=== PATIENT | male | born 1985 | race American Indian/Alaskan Native ===

== ENCOUNTER 2018-07-17 18:25 | Inpatient (IN) | payer SELFPAY ==
[~2018-07-17 18:25] MED LIST: VITAMIN B-1 PO ONE
[2018-07-17] MEDS ORDERED: ATIVAN IV ONE (18:50)
--- NOTE | 2018-07-17 19:00 | Emergency Department Report ---
HPI - General Chief Complaint: Seizure Time Seen by Provider: 07/17/18 18:43 - HPI HPI: Room 8 The patient is a 33-year-old male presenting with chief complaint of seizure. The patient states he normally drinks two 24 ounce beers or sixpack daily. The patient states he recently cut down on his alcohol and only drank one beer yesterday. Patient states he did not drink any beer today. Yesterday the patient states he had a seizure and today he had a second seizure awakening on the floor. Location: [facility] Duration: [See above] Quality: Generalized tonic-clonic Severity: [See above] Modifying factors: [see above] Context: [see above] Mode of transportation: [not driving] ED Past Medical Hx - Past Medical History Hx Seizures: Yes - Surgical History Past Surgical History?: No - Family History Family history: no significant - Social History Smoking Status: Current Every Day Smoker (1/2 pack per day) Substance Use Type: Alcohol (sixpack of beer daily) ED Review of Systems ROS: Stated complaint: SEIZURE Other details as noted in HPI Constitutional: no symptoms reported Eyes: denies: eye pain ENT: denies: throat pain Respiratory: no symptoms reported Cardiovascular: denies: chest pain Endocrine: no symptoms reported Gastrointestinal: denies: abdominal pain Genitourinary: denies: dysuria Musculoskeletal: denies: back pain Neurological: other (seizure) Physical Exam - Physical Exam Physical Exam: GENERAL: The patient is well-developed well-nourished male lying on stretcher appearing slightly tremulous. [] HEENT: Normocephalic. Atraumatic. Extraocular motions are intact. Patient has moist mucous membranes. NECK: Supple. Trachea midline CHEST/LUNGS: Clear to auscultation. There is no respiratory distress noted. HEART/CARDIOVASCULAR: Regular. There is no tachycardia. There is no gallop rub or murmur. ABDOMEN: Abdomen is soft, nontender. Patient has normal bowel sounds. There is no abdominal distention. SKIN: There is no rash. There is no edema. There is no diaphoresis. NEURO: The patient is awake, alert, and oriented. The patient is cooperative. The patient has no focal neurologic deficits. The patient has normal speech. Mild tremulousness MUSCULOSKELETAL: There is no evidence of acute injury. ED Medical Decision Making - Lab Data Result diagrams: 07/17/18 19:03 07/17/18 19:03 Laboratory Tests 07/17/18 07/17/18 19:03 19:03 WBC 4.7 RBC 4.18 Hgb 13.8 Hct 39.6 MCV 95 H MCH 33 H MCHC 35 H RDW 13.8 Plt Count 104 L Lymph % (Auto) 6.1 L [place] % (Auto) 11.9 H Eos % (Auto) 0.7 Baso % (Auto) 1.3 Lymph # 0.3 L [place] # 0.6 Eos # 0.0 Baso # 0.1 Seg Neutrophils % 80.0 H Seg Neutrophils # 3.8 Sodium 132 L Potassium 3.9 Chloride 95.2 L Carbon Dioxide 25 Anion Gap 16 BUN 11 Creatinine 1.1 Estimated GFR > 60 BUN/Creatinine Ratio 10 Glucose 102 H Calcium 9.5 Magnesium 1.90 Total Bilirubin 1.10 AST 247 H ALT 134 H Alkaline Phosphatase 124 Total Protein 7.0 Albumin 4.3 Albumin/Globulin Ratio 1.6 - Differential Diagnosis alcohol withdrawal Critical care attestation.: If time is entered above; I have spent that time in minutes in the direct care of this critically ill patient, excluding procedure time. ED Disposition Clinical Impression: Alcohol withdrawal Disposition: DC-09 OP ADMIT IP TO THIS HOSP Is pt being admited?: Yes Does the pt Need Aspirin: No Condition: Fair Time of Disposition: 19:37 (Hospitalist paged )
[2018-07-17] MEDS ORDERED: ATIVAN IV PRN (19:10)
[2018-07-17 19:14] LABS: Basophils # (Auto) 0.1 K/mm3 (0.0-0.1); Basophils % (Auto) 1.3 % (0.0-1.8); Eosinophils % (Auto) 0.7 % (0.0-4.3); Hematocrit 39.6 % (35.5-45.6); Hemoglobin 13.8 gm/dl (11.8-15.2); Lymphocytes # (Auto) 0.3 K/mm3 (1.2-5.4); Lymphocytes % (Auto) 6.1 % (13.4-35.0); Mean Corpuscular HGB Conc 35 % (32-34); Mean Corpuscular Volume 95 fl (84-94); Monocytes # (Auto) 0.6 K/mm3 (0.0-0.8); Monocytes % (Auto) 11.9 % (0.0-7.3); Platelet Count 104 K/mm3 (140-440); Red Blood Count 4.18 M/mm3 (3.65-5.03); Red Cell Distribution Width 13.8 % (13.2-15.2)
[2018-07-17 19:29] LABS: Alanine Aminotransferase 134 units/L (7-56); Albumin 4.3 g/dL (3.9-5); BUN/Creatinine Ratio 10; Blood Urea Nitrogen 11 mg/dL (9-20); Calcium 9.5 mg/dL (8.4-10.2); Hemolysis Index 38
[2018-07-17] MEDS ORDERED: VITAMIN B-1 PO SCH (19:30)
[2018-07-17] MEDS ORDERED: VITAMIN B-1 PO ONE (19:30)
[2018-07-17] MEDS ORDERED: ZOFRAN IV PRN (19:40)
[2018-07-17] MEDS ORDERED: SODIUM CHLORIDE FLUSH SYRINGE 10 ML IV PRN (19:40)
[2018-07-17] MEDS ORDERED: TYLENOL PO PRN (19:40)
[2018-07-17] MEDS ORDERED: PROVENTIL IH PRN ×2 (19:40→19:50)
--- NOTE | 2018-07-17 19:43 | History and Physical Report ---
History of Present Illness Chief complaint: I need help History of present illness: 33 YO Male with Nicotine Dependence, ETOH Dependence presents to ED for evaluation. Pt states that he has been trying to stop drinking ETOH over the past 1 week, and cut down his ETOG intake over the past 1 week, and only drank 1 beer yesterday. Pt was found down on the floor by family members having a seizure witnessed by the family. EMS notified and upon arrival the patient was found to be confused, with altered mentation. Pt transported to [facility]. Pt seen and evaluated in ED and found to have ETOH Withdrawl complicated by Seizures, Encephalopathy. Pt is lethargic, tremulous and unable to provide detailed history. No further history obtainable. Pt admitted to Medical floor and initiated on CIWA protocol, and banana bag. Past History Past Medical History: seizures Past Surgical History: No surgical history, Other (reviewed) Social history: single, alcohol abuse Family history: no significant family history (reviewed) Medications and Allergies Allergies Allergy/AdvReac Type Severity Reaction Status Date / Time No Known Allergies Allergy Unverified 07/17/18 18:55 Active Meds: Active Medications Acetaminophen (Tylenol) 650 mg PO Q4H PRN PRN Reason: Pain MILD(1-3)/Fever >100.5/WARD Albuterol (Proventil) 2.5 mg IH Q4HRT PRN PRN Reason: Shortness Of Breath Folic Acid 1 mg/ Multivitamins /Minerals 10 ml/ Magnesium Sulfate 2 gm/ Sodium Chloride 1,014.2 mls @ 250 mls/hr IV ONCE ONE Stop: 07/18/18 00:03 Thiamine HCl 100 mg/ Folic Acid 1 mg/ Multivitamins/Minerals 10 ml/ Sodium Chloride 1,011.2 mls @ 250 mls/hr IV ONCE ONE Stop: 07/17/18 23:43 Lorazepam (Ativan) 2 mg IV Q1HR PRN PRN Reason: CIWA-Ar 8-15 Lorazepam (Ativan) 4 mg IV Q1HR PRN PRN Reason: CIWA-Ar 16-25 Lorazepam (Ativan) 4 mg IV Q15MIN PRN PRN Reason: CIWA-Ar >25 Ondansetron HCl (Zofran) 4 mg IV Q8H PRN PRN Reason: Nausea And Vomiting Sodium Chloride (Sodium Chloride Flush Syringe 10 Ml) 10 ml IV BID ALEKSANDR Sodium Chloride (Sodium Chloride Flush Syringe 10 Ml) 10 ml IV PRN PRN PRN Reason: LINE FLUSH Review of Systems ROS unobtainable: due to mental status Exam - Constitutional Vitals: Temp Pulse Resp BP Pulse Ox 98.5 F 97 H 20 137/88 98 07/17/18 18:57 07/17/18 18:57 07/17/18 18:57 07/17/18 18:57 07/17/18 18:57 General appearance: Present: mild distress, cachectic, disheveled, malodorous - EENT Eyes: Present: PERRL, miosis ENT: hearing intact, clear oral mucosa - Neck Neck: Present: supple, normal ROM - Respiratory Respiratory effort: normal Respiratory: bilateral: CTA - Cardiovascular Rhythm: other (tachycardia) Heart Sounds: Present: S1 & S2. Absent: rub, click - Extremities Extremities: pulses symmetrical, No edema Peripheral Pulses: within normal limits - Abdominal General gastrointestinal: Present: soft, non-tender, non-distended, normal bowel sounds Male genitourinary: Present: normal - Integumentary Integumentary: Present: warm, clammy, decreased turgor - Musculoskeletal Musculoskeletal: generalized weakness - Psychiatric Psychiatric: no appropriate mood/affect, no intact judgment & insight, no memory intact, agitated - Neurologic Neurologic: moves all extremities, no gait normal Results - Labs CBC & Chem 7: 07/17/18 19:03 07/17/18 19:03 Labs: Abnormal lab results 07/17/18 07/17/18 Range/Units 19:03 19:03 MCV 95 H (84-94) fl MCH 33 H (28-32) pg MCHC 35 H (32-34) % Plt Count 104 L (140-440) K/mm3 Lymph % (Auto) 6.1 L (13.4-35.0) % [place] % (Auto) 11.9 H (0.0-7.3) % Lymph # 0.3 L (1.2-5.4) K/mm3 Seg Neutrophils % 80.0 H (40.0-70.0) % Sodium 132 L (137-145) mmol/L Chloride 95.2 L (98-107) mmol/L Glucose 102 H (75-100) mg/dL AST 247 H (5-40) units/L ALT 134 H (7-56) units/L Assessment and Plan - Patient Problems (1) Alcohol withdrawal Current Visit: Yes Status: Acute Qualifiers: Complication of substance-induced condition: with delirium Qualified Code(s): F10.231 - Alcohol dependence with withdrawal delirium Plan to address problem: Admit to medical floor, with remote telemetry, CIWA protocol, banana bag, neuro checks, seizure precautions, aspiration precautions, fall precautions, Alcolol level. (2) Hyponatremia syndrome Current Visit: Yes Status: Acute Plan to address problem: IVF resuscitation therapy,repeat bmp in am to monitor serum sodium (3) Nicotine dependence Current Visit: Yes Status: Acute Qualifiers: Nicotine product type: cigarettes Plan to address problem: Smoking cessation counseling, supportive care. (4) DVT prophylaxis Current Visit: Yes Status: Acute Plan to address problem: SCD to BLE, prophylactic lovenox
[2018-07-17] MEDS ORDERED: FOLVITE 1 MG, INFUVITE 10 ML, MAGNESIUM SULFATE 2 GM in NACL 0.9% 1000 ML 1,000 ML IV ONE (20:00)
[2018-07-17] MEDS ORDERED: FOLVITE 1 MG, INFUVITE 10 ML in NACL 0.9% 1000 ML 1,000 ML IV ONE (21:00)
--- NOTE | 2018-07-17 21:59 | Cat Scan Report ---
PROCEDURE: CT HEAD/BRAIN WO CON TECHNIQUE: Computerized tomography of the head was performed without contrast material. CT DOSE LENGTH PRODUCT: mGycm HISTORY: confusion COMPARISONS: None . FINDINGS: Skull and scalp: Normal . Paranasal sinuses: Normal . Ventricles and subarachnoid spaces: Normal . Cerebrum: No evidence of hemorrhage, acute infarction or mass . Cerebellum and brainstem: No evidence of hemorrhage, acute infarction or mass . Vasculature: Normal . Other: None . ASPECTS: 10 IMPRESSION: Unremarkable study. This document is electronically signed by Garett Dao MD., July 17 2018 09:57:16 PM ET
[2018-07-17] MEDS: LOVENOX SUB-Q SCH (22:24)
[2018-07-17] MEDS: SODIUM CHLORIDE FLUSH SYRINGE 10 ML IV SCH (22:24)
[2018-07-17] MEDS: ATIVAN IV PRN (22:28)
[2018-07-18 06:23] LABS: BUN/Creatinine Ratio 11; Blood Urea Nitrogen 10 mg/dL (9-20); Calcium 8.7 mg/dL (8.4-10.2); Hemolysis Index 5
[2018-07-18] MEDS: ATIVAN IV PRN ×5 (10:24→20:35)
[2018-07-18] MEDS ORDERED: K-DUR PO ONE (10:42)
--- NOTE | 2018-07-18 15:28 | Progress Note ---
Subjective Date of service: 07/18/18 Interval history: reviewed the CT of the head and it is normal the seizures are likely alcohol related from heavy drinking to the extent there is alcohol induced liver enzyme changes see the AST/ ALT agree with managemnt plan would treat with anticonvulsants Objective - Vital Sign Vital Signs - 12hr 07/18/18 07/18/18 11:21 11:45 Temperature 98.1 F Pulse Rate 83 Respiratory 16 Rate Blood Pressure 138/81 O2 Sat by Pulse 99 100 Oximetry - Laboratory Findings CBC and BMP: 07/17/18 19:03 07/18/18 05:45 Abnormal Lab Findings: Abnormal Labs 07/17/18 07/17/18 07/18/18 19:03 19:03 05:45 MCV 95 H MCH 33 H MCHC 35 H Plt Count 104 L Lymph % (Auto) 6.1 L [place] % (Auto) 11.9 H Lymph # 0.3 L Seg Neutrophils % 80.0 H Sodium 132 L 135 L Potassium 3.5 L Chloride 95.2 L Glucose 102 H AST 247 H ALT 134 H
--- NOTE | 2018-07-18 17:00 | Progress Note ---
Assessment and Plan Assessment and plan: 33 YO Male with Nicotine Dependence, ETOH Dependence presents to ED for evaluation. Pt states that he has been trying to stop drinking ETOH over the past 1 week, and cut down his ETOG intake over the past 1 week, and only drank 1 beer yesterday. Pt was found down on the floor by family members having a s eizure witnessed by the family. EMS notified and upon arrival the patient was found to be confused, with altered mentation. Pt transported to [facility]. Pt seen and evaluated in ED and found to have ETOH Withdrawl complicated by Seizures, Encephalopathy. Pt is lethargic, tremulous and unable to provide detailed history. No further history obtainable. Pt admitted to Medical floor and initiated on CIWA protocol, and banana bag. CT of the head and it is normal - Patient Problems (1) Alcohol withdrawal Current Visit: Yes Status: Acute Qualifiers: Complication of substance-induced condition: with delirium Qualified Code(s): F10.231 - Alcohol dependence with withdrawal delirium Plan to address problem: Continue current care, CIWA protocol, banana bag, neuro checks, seizure precautions, aspiration precautions, fall precautions, Alcolol level. D/C remote tele Monitor and replace electrolytes Neurology recommending anticonvulsants but not sure which one. (2) Seizure Neurology consult. Patient with repeated seizures. Most likely secondary to ETOH (3) Hyponatremia syndrome Current Visit: Yes Status: Acute Plan to address problem: stable, IVF resuscitation therapy, repeat bmp in am to monitor serum sodium (4) Nicotine dependence Current Visit: Yes Status: Acute Qualifiers: Nicotine product type: cigarettes Plan to address problem: Smoking cessation counseling, supportive care. (5) Metabolic Encephalopathy Secondary to ETOH Continues to get up unassisted and possess a risk to himself. will place on safety restraints until he is following commands fully and steady on gait (6) DVT prophylaxis Current Visit: Yes Status: Acute Plan to address problem: SCD to BLE, prophylactic lovenox History Interval history: Patient seen and examined, still with tremors and still with intermittent confusion. Admitted with seizure related to ETOH Hospitalist Physical - Physical exam Narrative exam: VITAL SIGNS: Reviewed. GENERAL: The patient appeared well nourished and normally developed, Mild distress, Vital signs as documented. HEAD: No signs of head trauma. EYES: Pupils are equal. Extraocular motions intact. EARS: Hearing grossly intact. MOUTH: Oropharynx is normal. NECK: No adenopathy, no JVD. CHEST: Chest with clear breath sounds bilaterally. No wheezes, rales, or rhonchi. CARDIAC: [place] but regular rhythm. S1 and S2, without murmurs, gallops, or rubs. VASCULAR: No Edema. Peripheral pulses normal and equal in all extremities. ABDOMEN: Soft, non tender and non distended. No rebound or guarding, and no masses palpated. Bowel Sounds normal. MUSCULOSKELETAL: Good range of motion of all major joints. Extremities without clubbing, cyanosis or edema. NEUROLOGIC EXAM: Tremor, Alert and oriented x 2 No focal sensory or strength deficits. unsteady gait Follows commands. PSYCHIATRIC: Mood normal. SKIN: No rash or lesions. - Constitutional Vitals: Temp Pulse Resp BP Pulse Ox 98.1 F 83 16 138/81 100 07/18/18 11:45 07/18/18 11:45 07/18/18 11:45 07/18/18 11:45 07/18/18 11:45 General appearance: Present: mild distress, cachectic, disheveled, malodorous Results - Labs CBC & Chem 7: 07/17/18 19:03 07/18/18 05:45 Labs: Laboratory Last Values WBC 4.7 K/mm3 (4.5-11.0) 07/17/18 19:03 RBC 4.18 M/mm3 (3.65-5.03) 07/17/18 19:03 Hgb 13.8 gm/dl (11.8-15.2) 07/17/18 19:03 Hct 39.6 % (35.5-45.6) 07/17/18 19:03 MCV 95 fl (84-94) H 07/17/18 19:03 MCH 33 pg (28-32) H 07/17/18 19:03 MCHC 35 % (32-34) H 07/17/18 19:03 RDW 13.8 % (13.2-15.2) 07/17/18 19:03 Plt Count 104 K/mm3 (140-440) L 07/17/18 19:03 Lymph % (Auto) 6.1 % (13.4-35.0) L 07/17/18 19:03 [place] % (Auto) 11.9 % (0.0-7.3) H 07/17/18 19:03 Eos % (Auto) 0.7 % (0.0-4.3) 07/17/18 19:03 Baso % (Auto) 1.3 % (0.0-1.8) 07/17/18 19:03 Lymph # 0.3 K/mm3 (1.2-5.4) L 07/17/18 19:03 [place] # 0.6 K/mm3 (0.0-0.8) 07/17/18 19:03 Eos # 0.0 K/mm3 (0.0-0.4) 07/17/18 19:03 Baso # 0.1 K/mm3 (0.0-0.1) 07/17/18 19:03 Seg Neutrophils % 80.0 % (40.0-70.0) H 07/17/18 19:03 Seg Neutrophils # 3.8 K/mm3 (1.8-7.7) 07/17/18 19:03 Sodium 135 mmol/L (137-145) L 07/18/18 05:45 Potassium 3.5 mmol/L (3.6-5.0) L 07/18/18 05:45 Chloride 99.0 mmol/L (98-107) 07/18/18 05:45 Carbon Dioxide 26 mmol/L (22-30) 07/18/18 05:45 Anion Gap 14 mmol/L 07/18/18 05:45 BUN 10 mg/dL (9-20) 07/18/18 05:45 Creatinine 0.9 mg/dL (0.8-1.5) 07/18/18 05:45 Estimated GFR > 60 ml/min 07/18/18 05:45 BUN/Creatinine Ratio 11 % 07/18/18 05:45 Glucose 81 mg/dL (75-100) 07/18/18 05:45 Calcium 8.7 mg/dL (8.4-10.2) 07/18/18 05:45 Magnesium 1.90 mg/dL (1.7-2.3) 07/17/18 19:03 Total Bilirubin 1.10 mg/dL (0.1-1.2) 07/17/18 19:03 AST 247 units/L (5-40) H 07/17/18 19:03 ALT 134 units/L (7-56) H 07/17/18 19:03 Alkaline Phosphatase 124 units/L (35-129) 07/17/18 19:03 Total Protein 7.0 g/dL (6.3-8.2) 07/17/18 19:03 Albumin 4.3 g/dL (3.9-5) 07/17/18 19:03 Albumin/Globulin Ratio 1.6 % 07/17/18 19:03 Plasma/Serum Alcohol < 0.01 % (0-0.07) 07/17/18 19:51 Active Medications - Current Medications Current Medications: Generic Name Dose Route Start Last Admin Trade Name Freq PRN Reason Stop Dose Admin Acetaminophen 650 mg 07/17/18 19:40 Tylenol PO Q4H PRN Pain MILD(1-3)/Fever >100.5/WARD Albuterol 2.5 mg 07/17/18 19:50 Proventil IH Q4HRT PRN Shortness Of Breath Enoxaparin Sodium 40 mg 07/17/18 22:00 07/17/18 22:24 Lovenox SUB-Q 40 mg QDAY@2200 ALEKSANDR Administration Lorazepam 2 mg 07/17/18 19:10 07/18/18 16:14 Ativan IV 2 mg Q1HR PRN Administration CIWA-Ar 8-15 Lorazepam 4 mg 07/17/18 19:10 Ativan IV Q1HR PRN CIWA-Ar 16-25 Lorazepam 4 mg 07/17/18 19:10 Ativan IV Q15MIN PRN CIWA-Ar >25 Ondansetron HCl 4 mg 07/17/18 19:40 Zofran IV Q8H PRN Nausea And Vomiting Sodium Chloride 10 ml 07/17/18 22:00 07/17/18 22:24 Sodium Chloride Flush Syringe 10 Ml IV 10 ml BID ALEKSANDR Administration Sodium Chloride 10 ml 07/17/18 19:40 Sodium Chloride Flush Syringe 10 Ml IV PRN PRN LINE FLUSH
[2018-07-18] MEDS ORDERED: GEODON IM ONE (21:00)
[2018-07-18] MEDS ORDERED: WATER FOR INJ Sterile (PF) 10 ML ONE (21:08)
[2018-07-18] MEDS: SODIUM CHLORIDE FLUSH SYRINGE 10 ML IV SCH (21:10)
[2018-07-18] MEDS: LOVENOX SUB-Q SCH (21:20)
[2018-07-19] MEDS: ATIVAN IV PRN ×3 (02:39→06:47)
[2018-07-19 05:53] LABS: Hemoglobin 13.1 gm/dl (11.8-15.2); Mean Corpuscular HGB Conc 35 % (32-34); Mean Corpuscular Volume 96 fl (84-94); Platelet Count 110 K/mm3 (140-440); Red Blood Count 3.95 M/mm3 (3.65-5.03); Red Cell Distribution Width 13.5 % (13.2-15.2)
[2018-07-19 06:02] LABS: Alanine Aminotransferase 163 units/L (7-56); Albumin 4.4 g/dL (3.9-5); BUN/Creatinine Ratio 8; Blood Urea Nitrogen 5 mg/dL (9-20); Calcium 9.1 mg/dL (8.4-10.2); Hemolysis Index 11
[2018-07-19] MEDS: SODIUM CHLORIDE FLUSH SYRINGE 10 ML IV SCH ×3 (08:08→22:50)
--- NOTE | 2018-07-19 08:12 | Progress Note ---
Subjective Date of service: 07/19/18 Interval history: explained the diagnosis to the patient and advise he cease drinking alcohol based on LFT's and seizure disorder... he expressed understanding continue anticonvulsants Objective - Vital Sign Vital Signs - 12hr 07/18/18 07/19/18 22:00 04:45 Temperature 98.3 F Pulse Rate 87 Respiratory 20 Rate Blood Pressure 140/92 O2 Sat by Pulse 99 97 Oximetry - Laboratory Findings CBC and BMP: 07/19/18 04:16 07/19/18 04:16 Abnormal Lab Findings: Abnormal Labs 07/17/18 07/17/18 07/18/18 19:03 19:03 05:45 WBC MCV 95 H MCH 33 H MCHC 35 H Plt Count 104 L Lymph % (Auto) 6.1 L [place] % (Auto) 11.9 H Lymph # 0.3 L Seg Neutrophils % 80.0 H Sodium 132 L 135 L Potassium 3.5 L Chloride 95.2 L Carbon Dioxide BUN Creatinine Glucose 102 H AST 247 H ALT 134 H 07/19/18 07/19/18 04:16 04:16 WBC 4.4 L MCV 96 H MCH 33 H MCHC 35 H Plt Count 110 L Lymph % (Auto) [place] % (Auto) Lymph # Seg Neutrophils % Sodium Potassium Chloride Carbon Dioxide 21 L BUN 5 L Creatinine 0.6 L Glucose AST 377 H ALT 163 H
[2018-07-19] MEDS ORDERED: GEODON IM ONE (11:30)
[2018-07-19] MEDS ORDERED: WATER FOR INJ Sterile (PF) 10 ML ONE (12:39)
--- NOTE | 2018-07-19 14:20 | Progress Note ---
Assessment and Plan Assessment and plan: 33 YO Male with Nicotine Dependence, ETOH Dependence presents to ED for evaluation. Pt states that he has been trying to stop drinking ETOH over the past 1 week, and cut down his ETOG intake over the past 1 week, and only drank 1 beer yesterday. Pt was found down on the floor by family members having a s eizure witnessed by the family. EMS notified and upon arrival the patient was found to be confused, with altered mentation. Pt transported to [facility]. Pt seen and evaluated in ED and found to have ETOH Withdrawl complicated by Seizures, Encephalopathy. Pt is lethargic, tremulous and unable to provide detailed history. No further history obtainable. Pt admitted to Medical floor and initiated on CIWA protocol, and banana bag. CT of the head and it is normal Assessment: Acute metabolic encephalopathy secondary to EtOH withdrawal Alcohol use disorder with active withdrawal and delirium tremens Seizure secondary to EtOH abuse Hyponatremia Nicotine use disorder and dependence Hypokalemia Thrombocytopenia Leukopenia Plan Replace electrolytes as needed Continue supportive care Continue stressful personal safety Continue CIWA protocol Abnormalities on CBC likely secondary to EtOH bone marrow suppression Passive counseling greater than 15 minutes provided to the patient will also repeat once patient is more awake Neurologic input noted Anticonvulsants on discharge DVT and GI prophylaxis History Interval history: Patient seen and examined, still with tremors and still with intermittent confusion and often trying to get out of bed with noted on steady gait. Admitted with seizure related to ETOH Hospitalist Physical - Physical exam Narrative exam: VITAL SIGNS: Reviewed. GENERAL: The patient appeared well nourished and normally developed, Mild di stress, Vital signs as documented. HEAD: No signs of head trauma. EYES: Pupils are equal. Extraocular motions intact. EARS: Hearing grossly intact. MOUTH: Oropharynx is normal. NECK: No adenopathy, no JVD. CHEST: Chest with clear breath sounds bilaterally. No wheezes, rales, or rhonchi. CARDIAC: [place] but regular rhythm. S1 and S2, without murmurs, gallops, or rubs. VASCULAR: No Edema. Peripheral pulses normal and equal in all extremities. ABDOMEN: Soft, non tender and non distended. No rebound or guarding, and no masses palpated. Bowel Sounds normal. MUSCULOSKELETAL: Good range of motion of all major joints. Extremities without clubbing, cyanosis or edema. NEUROLOGIC EXAM: Tremor, Alert and oriented x 1 No focal sensory or strength deficits. unsteady gait Follows commands. PSYCHIATRIC: Mood normal. SKIN: No rash or lesions. on restraints for safty - Constitutional Vitals: Temp Pulse Resp BP Pulse Ox 98.3 F 92 H 22 125/84 100 07/19/18 11:27 07/19/18 11:27 07/19/18 11:27 07/19/18 11:27 07/19/18 13:26 General appearance: Present: mild distress, cachectic, disheveled, malodorous Results - Labs CBC & Chem 7: 07/19/18 04:16 07/19/18 04:16 Labs: Laboratory Last Values WBC 4.4 K/mm3 (4.5-11.0) L 07/19/18 04:16 RBC 3.95 M/mm3 (3.65-5.03) 07/19/18 04:16 Hgb 13.1 gm/dl (11.8-15.2) 07/19/18 04:16 Hct 38.0 % (35.5-45.6) 07/19/18 04:16 MCV 96 fl (84-94) H 07/19/18 04:16 MCH 33 pg (28-32) H 07/19/18 04:16 MCHC 35 % (32-34) H 07/19/18 04:16 RDW 13.5 % (13.2-15.2) 07/19/18 04:16 Plt Count 110 K/mm3 (140-440) L 07/19/18 04:16 Lymph % (Auto) 6.1 % (13.4-35.0) L 07/17/18 19:03 [place] % (Auto) 11.9 % (0.0-7.3) H 07/17/18 19:03 Eos % (Auto) 0.7 % (0.0-4.3) 07/17/18 19:03 Baso % (Auto) 1.3 % (0.0-1.8) 07/17/18 19:03 Lymph # 0.3 K/mm3 (1.2-5.4) L 07/17/18 19:03 [place] # 0.6 K/mm3 (0.0-0.8) 07/17/18 19:03 Eos # 0.0 K/mm3 (0.0-0.4) 07/17/18 19:03 Baso # 0.1 K/mm3 (0.0-0.1) 07/17/18 19:03 Seg Neutrophils % 80.0 % (40.0-70.0) H 07/17/18 19:03 Seg Neutrophils # 3.8 K/mm3 (1.8-7.7) 07/17/18 19:03 Sodium 140 mmol/L (137-145) 07/19/18 04:16 Potassium 3.9 mmol/L (3.6-5.0) 07/19/18 04:16 Chloride 100.7 mmol/L (98-107) 07/19/18 04:16 Carbon Dioxide 21 mmol/L (22-30) L 07/19/18 04:16 Anion Gap 22 mmol/L 07/19/18 04:16 BUN 5 mg/dL (9-20) L 07/19/18 04:16 Creatinine 0.6 mg/dL (0.8-1.5) L 07/19/18 04:16 Estimated GFR > 60 ml/min 07/19/18 04:16 BUN/Creatinine Ratio 8 % 07/19/18 04:16 Glucose 89 mg/dL (75-100) 07/19/18 04:16 Calcium 9.1 mg/dL (8.4-10.2) 07/19/18 04:16 Magnesium 1.90 mg/dL (1.7-2.3) 07/17/18 19:03 Total Bilirubin 1.00 mg/dL (0.1-1.2) 07/19/18 04:16 AST 377 units/L (5-40) H 07/19/18 04:16 ALT 163 units/L (7-56) H 07/19/18 04:16 Alkaline Phosphatase 106 units/L (35-129) 07/19/18 04:16 Total Protein 7.3 g/dL (6.3-8.2) 07/19/18 04:16 Albumin 4.4 g/dL (3.9-5) 07/19/18 04:16 Albumin/Globulin Ratio 1.5 % 07/19/18 04:16 Plasma/Serum Alcohol < 0.01 % (0-0.07) 07/17/18 19:51 Active Medications - Current Medications Current Medications: Generic Name Dose Route Start Last Admin Trade Name Freq PRN Reason Stop Dose Admin Albuterol 2.5 mg 07/17/18 19:50 Proventil IH Q4HRT PRN Shortness Of Breath Enoxaparin Sodium 40 mg 07/17/18 22:00 07/18/18 21:20 Lovenox SUB-Q 40 mg QDAY@2200 ALEKSANDR Administration Sodium Chloride 1,000 mls @ 150 mls/hr 07/19/18 15:00 Nacl 0.9% 1000 Ml IV DIRECT ALEKSANDR Lorazepam 2 mg 07/17/18 19:10 07/19/18 02:39 Ativan IV 2 mg Q1HR PRN Administration CIWA-Ar 8-15 Lorazepam 4 mg 07/17/18 19:10 07/19/18 06:47 Ativan IV 4 mg Q1HR PRN Administration CIWA-Ar 16-25 Lorazepam 4 mg 07/17/18 19:10 Ativan IV Q15MIN PRN CIWA-Ar >25 Ondansetron HCl 4 mg 07/17/18 19:40 Zofran IV Q8H PRN Nausea And Vomiting Sodium Chloride 10 ml 07/17/18 22:00 07/19/18 09:32 Sodium Chloride Flush Syringe 10 Ml IV 10 ml BID ALEKSANDR Administration Sodium Chloride 10 ml 07/17/18 19:40 Sodium Chloride Flush Syringe 10 Ml IV PRN PRN LINE FLUSH
[2018-07-19 15:53] LABS: Alanine Aminotransferase 182 units/L (7-56); Albumin 4.2 g/dL (3.9-5)
[2018-07-19 15:54] LABS: Bilirubin,Direct < 0.2 mg/dL (0-0.2)
[2018-07-19] MEDS: NACL 0.9% 1000 ML 1,000 ML IV SCH ×2 (17:53→22:49)
[2018-07-19] MEDS: LOVENOX SUB-Q SCH (22:50)
[2018-07-20] MEDS: ATIVAN IV PRN (02:37)
[2018-07-20 05:54] VITALS: BP 135/86
[2018-07-20 07:17] LABS: Alanine Aminotransferase 200 units/L (7-56); Albumin 3.9 g/dL (3.9-5); BUN/Creatinine Ratio 12; Blood Urea Nitrogen 7 mg/dL (9-20); Calcium 8.5 mg/dL (8.4-10.2); Hemolysis Index 36
--- NOTE | 2018-07-20 11:19 | Discharge Summary ---
Providers - Providers Date of Admission: 07/17/18 19:40 Attending physician: KRISTEN VIZCARRA MD 07/18/18 10:47 Consult to Physician [CONS] Routine Comment: Consulting Provider: SYDNIE MAY Physician Instructions: Reason For Exam: Recurrent seizures ?etoh related [facility] Reason for admission: seizure Condition: Fair Hospital course: 33 YO Male with Nicotine Dependence, ETOH Dependence presents to ED for evaluation. Pt states that he has been trying to stop drinking ETOH over the past 1 week, and cut down his ETOG intake over the past 1 week, and only drank 1 beer yesterday. Pt was found down on the floor by family members having a seizure witnessed by the family. EMS notified and upon arrival the patient was found to be confused, with altered mentation. Pt transported to [facility]. Pt seen and evaluated in ED and found to have ETOH Withdrawl complicated by Seizures, Encephalopathy. Pt is lethargic, tremulous and unable to provide detailed history. No further history obtainable. Pt admitted to Medical floor and initiated on CIWA protocol, and banana bag. Patient was treated for ETOH withdrawal, electrolyes replaced, mental status improved. He was given extensive counselling about etoh risk and need to quit also encouraged to enroll in AA. he was also seen by Neurology. He was advised against driving for the next 6 months until cleared by neurology per [place] law. He is clinically stable for discharge CT of the head and it is normal Assessment: Acute metabolic encephalopathy secondary to EtOH withdrawal Alcohol use disorder with active withdrawal and delirium tremens Seizure secondary to EtOH abuse Hyponatremia Nicotine use disorder and dependence Hypokalemia Thrombocytopenia Leukopenia Disposition: - TO HOME OR SELFCARE Time spent for discharge: 35 mins Core Measure Documentation - Palliative Care Palliative Care/ Comfort Measures: Not Applicable - Core Measures Any of the following diagnoses?: none Exam - Physical Exam Narrative exam: VITAL SIGNS: Reviewed. GENERAL: The patient appeared well nourished and normally developed, No distress, Vital signs as documented. HEAD: No signs of head trauma. EYES: Pupils are equal. Extraocular motions intact. EARS: Hearing grossly intact. MOUTH: Oropharynx is normal. NECK: No adenopathy, no JVD. CHEST: Chest with clear breath sounds bilaterally. No wheezes, rales, or rhonchi. CARDIAC: Tachycadia but regular rhythm. S1 and S2, without murmurs, gallops, or rubs. VASCULAR: No Edema. Peripheral pulses normal and equal in all extremities. ABDOMEN: Soft, non tender and non distended. No rebound or guarding, and no masses palpated. Bowel Sounds normal. MUSCULOSKELETAL: Good range of motion of all major joints. Extremities without clubbing, cyanosis or edema. NEUROLOGIC EXAM: Tremor, Alert and oriented x 3 No focal sensory or strength deficits. Follows commands. PSYCHIATRIC: Mood normal. SKIN: No rash or lesions. on restraints for safty - Constitutional Vitals: Temp Pulse Resp BP Pulse Ox 97.1 F L 70 24 135/86 100 07/20/18 05:20 07/20/18 05:20 07/20/18 05:20 07/20/18 05:20 07/20/18 05:20 Plan Activity: advance as tolerated, fall precautions Diet: regular Special Instructions: record daily BP diary, smoking cessation, other (ETOH cessation encouraged) Additional Instructions: Must have repeat LFT followed by his Doctor in 3 days Follow up with: [facility] MD MARCIO [Primary Care Provider] - 3-5 Days SYDNIE MAY MD [Staff Physician] - 7 Days Prescriptions: Folic Acid 0.4 mg PO QDAY #30 tablet levETIRAcetam [Keppra TAB] 500 mg PO BID #60 tablet Thiamine [Vitamin B-1] 100 mg PO QDAY #30 tablet Other Discharge Orders: Hepatic Panel Time Frame: 3 Days, Location: None Selected
== END 2018-07-20 13:30 | disposition home or self-care (01) | DRG 100 ==
LOC: ED 18:25 → 3A 19:40
PROVIDERS: ADMIT Internal Medicine; ATTEND Internal Medicine
DX: G40.509 Epileptic seizures related to external causes, not intractable, without status epilepticus (principal); G93.41 Metabolic encephalopathy; E87.1 Hypo-osmolality and hyponatremia; F10.231 Alcohol dependence with withdrawal delirium; F17.210 Nicotine dependence, cigarettes, uncomplicated; E87.6 Hypokalemia; D69.6 Thrombocytopenia, unspecified
CPT/HCPCS: 36415; 70450; 80048; 80053; 80076; 80320; 83735; 85025; 85027; 96374; 99285; G0378; G0480; J1650; J2060; J3475; J3486; J7030